=== PATIENT | male | born 1935 | race Caucasian/White ===

== ENCOUNTER 2024-01-31 05:30 | Inpatient (IN) | payer OTHER, MEDICAID ==
[~2024-01-31] VITALS: Ht 170.2 cm; Wt 74.8 kg
[~2024-01-31 05:30] MED LIST: ALBU8.5H8 INH; ASPI-862 PO; HYDR-3919 PO
[2024-01-31] MEDS ORDERED: ACETAMINOPHEN 500 MG TABLET ONE (05:47)
[2024-01-31] MEDS ORDERED: oxyCODONE HCL 10 MG TAB.ER.12H PO ONE (05:47)
[2024-01-31] MEDS ORDERED: GABAPENTIN 300 MG CAPSULE ONE (05:47)
[2024-01-31] MEDS ORDERED: CEFAZOLIN SOD 2 GM in D5W 50 ML IV ONE (06:00)
[2024-01-31] MEDS: GABAPENTIN 300 MG CAPSULE PO ONE (06:05)
[2024-01-31] MEDS: ACETAMINOPHEN 500 MG TABLET PO ONE (06:05)
[2024-01-31] MEDS ORDERED: BUPIVACAINE /DEX PF 0.75% SPINAL 2 ML AMP INJ ONE (06:53)
[2024-01-31] MEDS ORDERED: PROPOFOL DRIP 100 ML IV ONE (06:55)
[2024-01-31] MEDS: oxyCODONE HCL 10 MG TAB.ER.12H PO ONE (07:00)
[2024-01-31] MEDS ORDERED: MIDAZOLAM HCL 2 MG/2 ML VIAL (VERSED) ONE (07:03)
[2024-01-31] MEDS ORDERED: ONDANSETRON HCL 4 MG/2 ML VIAL IVP PRN ×2 (08:00→11:45)
[2024-01-31] MEDS ORDERED: hydrALAZINE HCL 20 MG/ML VIAL IV PRN (08:00)
[2024-01-31] MEDS ORDERED: HYDROmorphone 1 MG/ML INJ. CARTRIDGE IVP PRN ×6 (08:00→11:00)
[2024-01-31] MEDS ORDERED: NALOXONE HCL 0.4 MG/ML AMP (NARCAN) IVP PRN ×6 (08:00→09:30)
[2024-01-31] MEDS ORDERED: LACTULOSE 20 GM/30 ML UDC PO PRN (09:30)
[2024-01-31] MEDS ORDERED: DIPHENHYDRAMINE HCL 25 MG CAPSULE PO PRN (09:30)
[2024-01-31] MEDS ORDERED: NALOXONE HCL 2 MG/2 ML SYR IVP PRN (09:30)
[2024-01-31] MEDS ORDERED: METOCLOPRAMIDE HCL 10 MG/2 ML VIAL IVP PRN (09:30)
[2024-01-31] MEDS ORDERED: BISACODYL 10 MG/SUPPOSITORY RC PRN (09:30)
[2024-01-31] MEDS ORDERED: FINA-37 PO (10:12)
[2024-01-31] MEDS ORDERED: TAMS-11 PO (10:12)
[2024-01-31] MEDS ORDERED: traMADol HCL HCL 50 MG TABLET (ULTRAM) PO PRN (11:00)
[2024-01-31] MEDS ORDERED: oxyCODONE HCL 5 MG TABLET PO PRN ×2 (11:00)
[2024-01-31] MEDS ORDERED: LORATADINE 10 MG TABLET PO PRN (11:00)
[2024-01-31 12:00] VITALS: BP_SYST 161; PULSE 63; RESP 18; TEMP 96.7; O2SAT 97
[2024-01-31] MEDS: ceFAZolin SODIUM 2 GM in D5W 50 ML IV SCH (15:57)
[2024-01-31] MEDS: ACETAMINOPHEN 500 MG TABLET PO SCH (15:58)
[2024-01-31] MEDS: KETOROLAC TROMETHAMINE 10 MG TABLET (TORADOL) PO SCH (16:05)
[2024-01-31 20:00] VITALS: BP_SYST 143; PULSE 68; RESP 18; TEMP 97.9; O2SAT 93
[2024-01-31 20:31] VITALS: O2SAT 93
[2024-01-31] MEDS: SENNOSIDES/DOCUSATE SODIUM 1 TAB TABLET(SENOKOT-S) PO SCH (21:15)
[2024-02-01 00:56] VITALS: BP_SYST 134; PULSE 61; RESP 17; TEMP 98.6; O2SAT 93
[2024-02-01 00:59] VITALS: BP_SYST 134; PULSE 61; RESP 17; TEMP 98.6; O2SAT 93
[2024-02-01 08:00] VITALS: BP_SYST 97; PULSE 81; RESP 20; TEMP 97; O2SAT 95
[2024-02-01 09:15] VITALS: O2SAT 94
[2024-02-01] MEDS: ASPIRIN 81 MG TAB.CHEW PO SCH (10:01)
[2024-02-01] MEDS: CELECOXIB 200 MG CAPSULE PO SCH (11:00)
[2024-02-01 11:15] VITALS: BP_SYST 114; PULSE 75; RESP 18; TEMP 97.7; O2SAT 97
[2024-02-01 11:45] VITALS: BP_SYST 114; PULSE 75; RESP 18; TEMP 97.7; O2SAT 97
== END 2024-02-01 12:20 | disposition home or self-care (01) | DRG 470 ==
LOC: SMU 05:30
PROVIDERS: ADMIT Orthopaedic Surgery Sports Medicine; ATTEND Orthopaedic Surgery Sports Medicine
PROC: 0SRC0J9 Replacement of Right Knee Joint with Synthetic Substitute, Cemented, Open Approach (ICD-10-PCS; principal; 2024-01-31 07:03)
DX: M17.11 Unilateral primary osteoarthritis, right knee (principal)
CPT/HCPCS: 73560; 87081; 88305; 88311; 96379; 97110-GP; 97116-GP; 97530-GP; C1713; C1776; J0690; J2704; J3370; J3465; J3490; J7060; J7120